=== PATIENT | male | born 1960 | race Caucasian/White ===

== ENCOUNTER → 2017-06-04 | Day surgery (SDC) | payer BC ==
[~2017-06-04] MED LIST: ALLERGY10 M1 PO; ASPIRIN PO; LORTAB 7.5-3251 EACH PO; LORTAB 7.5-5001 TAB PO; OMEPRAZOLE20 M1 PO
--- NOTE | ~2017-06-04 | OR ---
Unit #: [id number] #: [id number] Patient: LIANE FLORES [id number] [facility]. [place], [place] [address] [id number] MR#: [id number] NAME: LIANE FLORES ROOM: Date of Procedure: 06/04/2017 Admission Date: 06/04/2017 Surgeon: Carlos Dawson M.D. : 1960 Attending Physician: Carlos Dawson M.D. Referring Physician: Carlos Dawson M.D. Primary Care Physician: Lamont Mast M.D. OPERATIVE REPORT PREOPERATIVE DIAGNOSIS The patient has presented for colorectal cancer surveillance. He has personal history of colon polyps. PROCEDURES PERFORMED Colonoscopy and polypectomy. POSTOPERATIVE DIAGNOSES 1. The patient has 2 cm sessile polyp in the rectum, which was removed using snare polypectomy. 2. There were 2 polyps in the descending colon. These were 1.5 cm and 5 mm each. Both were removed using snare cautery polypectomy, retrieved and sent for histology. 3. Small internal hemorrhoids. 4. Scant sigmoid and descending colon diverticulosis. 5. Rest of the examination up to cecum and terminal ileum was normal. The quality of the prep was excellent. RECOMMENDATIONS Follow up the results of polyp histology. Consider repeat colonoscopy in 5 years. SEDATION USED MAC. DESCRIPTION OF PROCEDURE Following detailed explanation of the potential risks and complications of a colonoscopy, namely perforation, bleeding, and complications related to sedation, the patient was brought to GI lab and laid in the left lateral decubitus position. Digital rectal examination was performed, which was normal. Lubricated tip of the Olympus video colonoscope was inserted through the anus and advanced under direct vision. The scope was advanced and passed up to sigmoid into descending colon. Scant small diverticula were noted in this area. The scope tip was then navigated all the way up to cecum with visualization of the ileocecal valve and the appendiceal orifice. Preparation was excellent with good visualization and photodocumentation was obtained. Last several inches of terminal ileum also visualized after intubation of the ileocecal valve and appeared normal. Successive segments of the colonic mucosa were examined upon withdrawal. The patient was noted to have 2 sessile polyps in the mid descending colon. These were 1.5 cm and 5 mm each. Both were removed using snare cautery polypectomy. They were retrieved and sent for Unit #: [id number] #: [id number] Patient: LIANE FLORES histology. A large 2 cm sessile polyps noted in the rectum, which was also removed using snare cautery polypectomy. No additional polyps noted. Other than the left-sided diverticula, the patient was also noted to have small internal hemorrhoids at anal verge. The scope was then withdrawn. The patient returned to recovery area. The patient tolerated the procedure without any postprocedure complications. Dictated by... John Mcdermott/alberto TD: 06/04/2017 11:51 JOB #: [id number] CC: Lamont Mast M.D. OPERATIVE REPORT Page 1 of 1 X Carlos Dawson MD X PROCEDURE OPERATIVE NOTE
== END | disposition home or self-care (01) ==
LOC: COPS 07:56
DX: Z12.11 Encounter for screening for malignant neoplasm of colon (principal); D12.4 Benign neoplasm of descending colon; D12.8 Benign neoplasm of rectum; K64.8 Other hemorrhoids; K57.30 Diverticulosis of large intestine without perforation or abscess without bleeding; N40.0 Benign prostatic hyperplasia without lower urinary tract symptoms; K21.9 Gastro-esophageal reflux disease without esophagitis; Z87.01 Personal history of pneumonia (recurrent); Z86.010 Personal history of colon polyps; Z79.891 Long term (current) use of opiate analgesic; Z79.899 Other long term (current) drug therapy; Z98.52 Vasectomy status; Z98.890 Other specified postprocedural states
CPT/HCPCS: 88305; J2250